=== PATIENT | female | born 1980 | race Two or more races ===

== ENCOUNTER 2018-01-27 18:22 | Inpatient (IN) | payer MEDICAID ==
[~2018-01-27] VITALS: Ht 162.6 cm; Wt 78.4 kg
[~2018-01-27 18:22] MED LIST: GLIP5TAB77; METF-370
[2018-01-27] MEDS ORDERED: SODIUM CHLORIDE 0.9% 1,000 ML IV ONE (19:52)
[2018-01-27] MEDS ORDERED: MORPHINE SULFATE 4 MG/ML SYR/VIAL IV ONE (20:00)
[2018-01-27] MEDS ORDERED: ONDANSETRON HCL 4 MG/2 ML VIAL IV ONE (20:00)
[2018-01-27 20:14] LABS: Basophils # (auto) 0 uL; Basophils % (auto) 0.2 % (0.0-2.0); Eosinophils # (auto) 0.2 uL; Hematocrit 41.4 % (36.0-46.0); Hemoglobin 14.4 g/dL (12.2-16.2); Lymphocytes # (auto) 3.5 uL; Lymphocytes % (auto) 38.2 % (10.0-50.0); Mean Corpuscular Hgb Conc. 34.7 g/dL (32.0-36.0); Mean Corpuscular Volume 86.4 fL (80.0-100.0); Monocytes # (auto) 0.5 uL; Monocytes % (auto) 5.7 % (0.0-12.0); Neutrophils # (auto) 4.9 uL; Neutrophils % (auto) 53.9 % (37.0-80.0); Nucleated Red Blood Cells % 0.1 %; Platelet Count (auto) 277 10^3/uL (140-450); Red Blood Cells 4.79 10^6/uL (4.0-5.20); Red Cell Distribution Width 14.1 % (11.8-14.3); White Blood Cell 9.1 10^3/uL (4.4-10.8)
[2018-01-27 20:32] LABS: Albumin 3.4 g/dL (3.4-5.0); BUN/Creatinine Ratio 21.3; Bilirubin, Total 0.2 mg/dL (0.2-1.0); Calcium 8.7 mg/dL (8.5-10.1); Potassium 3.4 mmol/L (3.5-5.1); Total Protein 7.7 g/dL (6.4-8.2)
[2018-01-27] MEDS ORDERED: CLINDAMYCIN 600MG IV 50 ML IV ONE (21:15)
[2018-01-28] MEDS ORDERED: SODIUM CHLORIDE 0.9% 1,000 ML IV ONE (00:15)
[2018-01-28] MEDS ORDERED: DEXTROSE (50%) 50ML SYRG IV PRN (00:15)
[2018-01-28] MEDS ORDERED: ACETAMINOPHEN 500 MG TAB PO PRN (00:15)
[2018-01-28] MEDS ORDERED: HYDROcodone-ACET 5/325MG TAB PO PRN (00:15)
[2018-01-28] MEDS: CLINDAMYCIN 600MG IV 50 ML IV SCH ×3 (06:22→22:14)
[2018-01-28] MEDS: ACCU-CHEK COMFORT CURVE STRIP VI SCH ×4 (06:28→22:14)
[2018-01-28] MEDS: InsuLIN REG 1unit/0.01ml Soln (100units/ml) SC SCH ×4 (06:28→22:14)
[2018-01-28] MEDS: MORPHINE SULF INJ 2 MG/ML SYRINGE 1ML IV PRN ×3 (07:42→20:00)
[2018-01-28] MEDS: ONDANSETRON HCL 4 MG/2 ML VIAL IV PRN ×3 (07:43→20:04)
[2018-01-28] MEDS: cefTRIAXone 1GM/10ml IVPUSH 10 ML IV SCH (09:35)
[2018-01-28] MEDS: LISINOPRIL 5 MG TAB PO SCH (10:20)
[2018-01-28 12:13] LABS: Urine Bacteria FEW /hpf (None Seen); Urine Blood 2+ /uL (Negative); Urine Mucus FEW (None Seen); Urine WBC 1 /hpf (0 - 5)
[2018-01-28 16:50] VITALS: BP 94/56
[2018-01-28 17:00] VITALS: BP_SYST 112; BP_SYST 94; BP_DIAS 56
[2018-01-28] MEDS: glipiZIDE 5 MG TAB PO SCH (17:30)
[2018-01-28] MEDS ORDERED: IBUP600T27 PO (18:41)
[2018-01-28] MEDS ORDERED: METF-370 PO (18:41)
[2018-01-28] MEDS ORDERED: GABA250S2 PO (18:41)
[2018-01-28] MEDS ORDERED: LISI30TA36 PO (18:41)
[2018-01-28] MEDS ORDERED: SIMV-8 PO (18:41)
[2018-01-28 22:00] VITALS: BP 115/68
[2018-01-28] MEDS: INSULIN LANTUS (GLARGINE) 1 /0.01ml (100units/ml) SC SCH (22:14)
[2018-01-29 05:30] VITALS: BP 117/65
[2018-01-29] MEDS: CLINDAMYCIN 600MG IV 50 ML IV SCH ×3 (06:19→21:56)
[2018-01-29] MEDS: MORPHINE SULF INJ 2 MG/ML SYRINGE 1ML IV PRN ×3 (06:20→20:19)
[2018-01-29] MEDS: ONDANSETRON HCL 4 MG/2 ML VIAL IV PRN ×3 (06:20→20:19)
[2018-01-29] MEDS: glipiZIDE 5 MG TAB PO SCH ×2 (06:21→17:47)
[2018-01-29] MEDS: ACCU-CHEK COMFORT CURVE STRIP VI SCH ×4 (06:23→21:56)
[2018-01-29] MEDS: InsuLIN REG 1unit/0.01ml Soln (100units/ml) SC SCH ×4 (07:02→22:03)
[2018-01-29] MEDS: cefTRIAXone 1GM/10ml IVPUSH 10 ML IV SCH (08:35)
[2018-01-29 08:51] VITALS: BP_SYST 104; BP_SYST 138; BP_DIAS 67; BP_DIAS 80
[2018-01-29] MEDS: LISINOPRIL 5 MG TAB PO SCH (09:24)
[2018-01-29 12:33] VITALS: BP 118/72
[2018-01-29] MEDS: IBUPROFEN 400 MG TAB PO PRN (15:22)
[2018-01-29 16:51] VITALS: BP 123/72
[2018-01-29 22:00] VITALS: BP 106/66
[2018-01-29] MEDS: INSULIN LANTUS (GLARGINE) 1 /0.01ml (100units/ml) SC SCH (22:03)
[2018-01-30 05:30] VITALS: BP 103/67
[2018-01-30] MEDS: CLINDAMYCIN 600MG IV 50 ML IV SCH ×3 (06:41→22:06)
[2018-01-30] MEDS: glipiZIDE 5 MG TAB PO SCH ×2 (06:41→17:56)
[2018-01-30] MEDS: ACCU-CHEK COMFORT CURVE STRIP VI SCH ×4 (06:42→22:27)
[2018-01-30] MEDS: InsuLIN REG 1unit/0.01ml Soln (100units/ml) SC SCH ×4 (06:42→22:26)
[2018-01-30 09:00] VITALS: BP 120/78
[2018-01-30] MEDS ORDERED: INSULIN LANTUS (GLARGINE) 1 /0.01ml (100units/ml) SC ONE (09:00)
[2018-01-30] MEDS: MORPHINE SULF INJ 2 MG/ML SYRINGE 1ML IV PRN ×3 (09:14→20:19)
[2018-01-30] MEDS: cefTRIAXone 1GM/10ml IVPUSH 10 ML IV SCH (09:14)
[2018-01-30] MEDS: ONDANSETRON HCL 4 MG/2 ML VIAL IV PRN ×2 (09:15→20:25)
[2018-01-30] MEDS: LISINOPRIL 5 MG TAB PO SCH (09:45)
[2018-01-30] MEDS: DAKINS QUARTER STR 0.125% (NaHypochlorite) 473 ML TOPICAL SOL TOP SCH ×2 (09:45→22:00)
[2018-01-30] MEDS: SILVER SULFADIAZINE 1 % TOPICAL CREAM 50GM TOP SCH ×2 (09:46→22:00)
[2018-01-30] MEDS ORDERED: PANTOPRAZOLE 40 MG TAB PO SCH (10:00)
[2018-01-30 13:00] VITALS: BP_SYST 108; BP_SYST 114; BP_DIAS 66; BP_DIAS 74
[2018-01-30] MEDS ORDERED: CLIN1CAP4 PO (15:18)
[2018-01-30] MEDS ORDERED: LIDOCAINE 1% HCL (LOCAL ANESTH.) INJ 20ML MDV ID ONE (16:15)
[2018-01-30] MEDS ORDERED: LIDOCAINE 1% (LOCAL ANESTH.) PF 5ml SDV ONE (16:47)
[2018-01-30 17:00] VITALS: BP 102/63
[2018-01-30] MEDS ORDERED: DAKINS HALF STR 0.25% (NaHypochlorite) 473 ML TOPICAL SOL TOP ONE (17:00)
[2018-01-30 22:00] VITALS: BP 109/77
[2018-01-30] MEDS: IBUPROFEN 400 MG TAB PO PRN (22:24)
[2018-01-30] MEDS: INSULIN LANTUS (GLARGINE) 1 /0.01ml (100units/ml) SC SCH (22:27)
[2018-01-31] MEDS: MORPHINE SULF INJ 2 MG/ML SYRINGE 1ML IV PRN ×2 (00:48→05:58)
[2018-01-31] MEDS: ONDANSETRON HCL 4 MG/2 ML VIAL IV PRN ×2 (00:48→05:58)
[2018-01-31 05:14] VITALS: BP 106/67
[2018-01-31] MEDS: CLINDAMYCIN 600MG IV 50 ML IV SCH (05:58)
[2018-01-31] MEDS: glipiZIDE 5 MG TAB PO SCH (06:49)
[2018-01-31] MEDS: ACCU-CHEK COMFORT CURVE STRIP VI SCH (06:51)
[2018-01-31] MEDS: InsuLIN REG 1unit/0.01ml Soln (100units/ml) SC SCH (06:51)
[2018-01-31] MEDS ORDERED: INSULIN LANTUS (GLARGINE) 1 /0.01ml (100units/ml) SC SCH (07:00)
[2018-01-31 07:26] VITALS: BP 120/78
[2018-01-31 09:00] VITALS: BP 98/66
== END 2018-01-31 09:00 | disposition home or self-care (01) | DRG 383 ==
LOC: ER 18:22 → OVERFLOW 18:23 → WEST WING 01-28 17:06
PROVIDERS: ADMIT Nurse Practitioner Family; ATTEND Internal Medicine
PROC: 0H9MXZZ Drainage of Right Foot Skin, External Approach (ICD-10-PCS; principal; 2018-01-30)
DX: L03.115 Cellulitis of right lower limb (principal); E11.42 Type 2 diabetes mellitus with diabetic polyneuropathy; E11.65 Type 2 diabetes mellitus with hyperglycemia; I10 Essential (primary) hypertension; L02.611 Cutaneous abscess of right foot; E78.5 Hyperlipidemia, unspecified; F17.210 Nicotine dependence, cigarettes, uncomplicated; Z79.4 Long term (current) use of insulin; Z83.3 Family history of diabetes mellitus; Z79.899 Other long term (current) drug therapy
CPT/HCPCS: 36415; 73700; 80053; 81001; 82962; 83036; 84550; 84702; 85025; 85652; 87077; 87186; 87205; 93971; 94761; 96361; 96374; 96375; J0696; J1815; J2405; J3490

== ENCOUNTER 2020-07-01 12:45 | Emergency (ER) | payer MEDICAID ==
[~2020-07-01] VITALS: Ht 162.6 cm; Wt 74.8 kg
[~2020-07-01 12:45] MED LIST changes: +CLIN300C8 PO; +GABA250S2 PO; -GLIP5TAB77; +IBUP600T27 PO; +LISI30TA4 PO; -METF-370; +METF-370 PO; +SIMV-8 PO
[2020-07-01] MEDS ORDERED: IOHEXOL 300 MG/ML 100ML BOTTLE IJ ONE (13:14)
[2020-07-01] MEDS ORDERED: MORPHINE SULFATE 4 MG/ML SYR/VIAL IV ONE ×2 (13:15→17:30)
[2020-07-01] MEDS ORDERED: SODIUM CHLORIDE 0.9% 1,000 ML IVB ONE (13:15)
[2020-07-01] MEDS ORDERED: ONDANSETRON HCL 4 MG/2 ML VIAL IV ONE ×2 (13:15→17:30)
[2020-07-01 14:33] LABS: Basophils # (auto) 0 10 ^3/uL (0-0.2); Basophils % (auto) 0.5 % (0.0-2.0); Eosinophils # (auto) 0.1 10 ^3/uL (0-0.8); Eosinophils % (auto) 1.5 % (0.0-7.0); Hematocrit 40.7 % (36.0-46.0); Hemoglobin 14.1 g/dL (12.2-16.2); Lymphocytes # (auto) 2.4 10 ^3/uL (0.4-5.4); Lymphocytes % (auto) 33.1 % (10.0-50.0); Mean Corpuscular Hemoglobin 29.8 pg (28.0-32.0); Mean Corpuscular Hgb Conc. 34.7 g/dL (32.0-36.0); Monocytes # (auto) 0.4 10 ^3/uL (0-1.3); Neutrophils # (auto) 4.3 10 ^3/uL (1.6-8.6); Neutrophils % (auto) 58.9 % (37.0-80.0); Nucleated Red Blood Cells % 0.1 %; Platelet Count (auto) 262 10^3/uL (140-450); Red Blood Cells 4.73 10^6/uL (4.0-5.20); Red Cell Distribution Width 14.1 % (11.8-14.3); White Blood Cell 7.3 10^3/uL (4.4-10.8)
[2020-07-01 16:22] LABS: Albumin 2.6 g/dL (3.4-5.0); Calcium 7.8 mg/dL (8.5-10.1); Potassium 3.7 mmol/L (3.5-5.1)
[2020-07-01 16:29] LABS: BUN/Creatinine Ratio 14.3; Bilirubin, Total 0.3 mg/dL (0.2-1.0); Total Protein 6.3 g/dL (6.4-8.2)
[2020-07-01] MEDS ORDERED: InsuLIN REG 1unit/0.01ml Soln (100units/ml) IV ONE (16:45)
[2020-07-01] MEDS ORDERED: ONDANSETRON HCL 4 MG/2 ML VIAL ONE (17:30)
[2020-07-01 17:59] VITALS: BP 114/79
== END 2020-07-01 18:23 | disposition home or self-care (01) ==
LOC: ER 12:45
DX: R10.84 Generalized abdominal pain (principal); R11.2 Nausea with vomiting, unspecified; E11.9 Type 2 diabetes mellitus without complications; E78.5 Hyperlipidemia, unspecified; F17.210 Nicotine dependence, cigarettes, uncomplicated
CPT/HCPCS: 36415; 74177; 80053; 83605; 83690; 85007; 85025; 85027; 87040; 96361; 96374; 96375; 96376; 99285; J2270; J2405; J7030; Q9967

== ENCOUNTER 2020-11-10 19:11 | Inpatient (IN) | payer MEDICAID ==
[~2020-11-10] VITALS: Ht 162.6 cm; Wt 77.5 kg
[2020-11-10] MEDS ORDERED: PANTOPRAZOLE 40 MG/10 ML VIAL INJ IV STA (19:34)
[2020-11-10] MEDS ORDERED: SODIUM CHLORIDE 0.9% 1,000 ML IVB ONE (19:45)
[2020-11-10] MEDS ORDERED: MORPHINE SULFATE 4 MG/ML SYR/VIAL IV ONE (19:45)
[2020-11-10] MEDS ORDERED: ONDANSETRON HCL 4 MG/2 ML VIAL IV ONE (19:45)
[2020-11-10 20:39] LABS: Basophils # (auto) 0.1 10 ^3/uL (0-0.2); Basophils % (auto) 0.7 % (0.0-2.0); Eosinophils # (auto) 0.2 10 ^3/uL (0-0.8); Hematocrit 39.7 % (36.0-46.0); Hemoglobin 13.7 g/dL (12.2-16.2); Lymphocytes # (auto) 2.4 10 ^3/uL (0.4-5.4); Mean Corpuscular Hgb Conc. 34.6 g/dL (32.0-36.0); Mean Corpuscular Volume 86.6 fL (80.0-100.0); Monocytes # (auto) 0.4 10 ^3/uL (0-1.3); Monocytes % (auto) 6.2 % (0.0-12.0); Neutrophils % (auto) 56.1 % (37.0-80.0); Nucleated Red Blood Cells % 0.2 %; Platelet Count (auto) 285 10^3/uL (140-450); Red Blood Cells 4.58 10^6/uL (4.0-5.20); Red Cell Distribution Width 14.8 % (11.8-14.3); White Blood Cell 7.2 10^3/uL (4.4-10.8)
[2020-11-10 20:51] LABS: Albumin 3.3 g/dL (3.4-5.0); Calcium 8.9 mg/dL (8.5-10.1)
[2020-11-10 20:55] LABS: BUN/Creatinine Ratio 15.3; Bilirubin, Total 0.2 mg/dL (0.2-1.0); Total Protein 7.2 g/dL (6.4-8.2)
[2020-11-10] MEDS ORDERED: InsuLIN REG 1unit/0.01ml Soln (100units/ml) IV ONE (21:15)
[2020-11-11] MEDS ORDERED: NITROGLYCERIN 0.4 MG SL TAB SL PRN (00:45)
[2020-11-11] MEDS ORDERED: ACETAMINOPHEN 325 MG TAB PO PRN (00:45)
[2020-11-11] MEDS ORDERED: TEMAZEPAM 15 MG CAP PO PRN (00:45)
[2020-11-11] MEDS ORDERED: DEXTROSE (50%) 50ML SYRG IV PRN (00:45)
[2020-11-11] MEDS ORDERED: MORPHINE SULF INJ 2 MG/ML SYRINGE 1ML IV PRN (00:45)
[2020-11-11] MEDS ORDERED: HYDROcodone-ACET 5/325MG TAB PO PRN (00:45)
[2020-11-11] MEDS ORDERED: DOCUSATE SOD 100 MG CAP PO PRN (00:45)
[2020-11-11] MEDS: InsuLIN REG 1unit/0.01ml Soln (100units/ml) SC SCH ×3 (05:43→17:21)
[2020-11-11] MEDS: ACCU-CHEK COMFORT CURVE STRIP VI SCH ×4 (05:44→23:58)
[2020-11-11] MEDS: SODIUM CHLOR 0.9% PF (SALINE LOCK) 10ML VIAL/SYR IV SCH ×3 (05:44→21:47)
[2020-11-11] MEDS: SODIUM CHLORIDE 0.9% 1,000 ML IV SCH ×2 (06:18→17:29)
[2020-11-11 09:05] VITALS: BP 108/72
[2020-11-11] MEDS ORDERED: ENOXAPARIN SOD 40 MG/0.4 ML SYRINGE SC SCH (10:00)
[2020-11-11] MEDS: MULTIPLE VITAMIN TAB PO SCH (10:22)
[2020-11-11] MEDS: FAMOTIDINE 20 MG TAB PO SCH ×2 (10:22→21:44)
[2020-11-11] MEDS: ASCORBIC ACID 500 MG TAB PO SCH ×2 (10:22→21:44)
[2020-11-11] MEDS: ZINC SULFATE 220mg CAP or TAB PO SCH (10:22)
[2020-11-11] MEDS: ONDANSETRON HCL 4 MG/2 ML VIAL IV PRN ×3 (10:29→22:26)
[2020-11-11] MEDS: MORPHINE SULFATE 4 MG/ML SYR/VIAL IV PRN ×3 (10:30→21:43)
[2020-11-11 11:06] LABS: Urine Bacteria NONE SEEN /hpf (None Seen); Urine Blood 1+ /uL (Negative); Urine Mucus FEW (None Seen); Urine Specific Gravity 1.018 (1.001-1.035); Urine WBC 1 /hpf (0 - 5)
[2020-11-11 11:23] LABS: Basophils # (auto) 0 10 ^3/uL (0-0.2); Basophils % (auto) 0.3 % (0.0-2.0); Eosinophils # (auto) 0.2 10 ^3/uL (0-0.8); Eosinophils % (auto) 2.5 % (0.0-7.0); Hematocrit 38.8 % (36.0-46.0); Hemoglobin 13.3 g/dL (12.2-16.2); Lymphocytes % (auto) 37.3 % (10.0-50.0); Mean Corpuscular Hemoglobin 29.4 pg (28.0-32.0); Mean Corpuscular Hgb Conc. 34.2 g/dL (32.0-36.0); Mean Corpuscular Volume 85.9 fL (80.0-100.0); Monocytes # (auto) 0.6 10 ^3/uL (0-1.3); Monocytes % (auto) 6.8 % (0.0-12.0); Neutrophils # (auto) 4.3 10 ^3/uL (1.6-8.6); Neutrophils % (auto) 53.1 % (37.0-80.0); Nucleated Red Blood Cells % 0.1 %; Platelet Count (auto) 248 10^3/uL (140-450); Red Blood Cells 4.52 10^6/uL (4.0-5.20); Red Cell Distribution Width 14.5 % (11.8-14.3); White Blood Cell 8.1 10^3/uL (4.4-10.8)
[2020-11-11 12:51] VITALS: BP 120/69
[2020-11-11 13:11] VITALS: BP 108/72
[2020-11-11 13:26] LABS: Calcium 8.5 mg/dL (8.5-10.1); Potassium 3.8 mmol/L (3.5-5.1)
[2020-11-11 13:27] LABS: BUN/Creatinine Ratio 15.7
[2020-11-11 13:30] LABS: Bilirubin, Total 0.3 mg/dL (0.2-1.0); Total Protein 6.7 g/dL (6.4-8.2)
[2020-11-11] MEDS ORDERED: INSU1INJ19 SC (14:14)
[2020-11-11] MEDS ORDERED: METF-370 PO (14:14)
[2020-11-11] MEDS ORDERED: ASPI-543 PO (14:14)
[2020-11-11] MEDS ORDERED: ESCI-28 PO (14:14)
[2020-11-11] MEDS ORDERED: GABA-339 PO (14:14)
[2020-11-11] MEDS ORDERED: ATOR20TA50 PO (14:14)
[2020-11-11] MEDS ORDERED: GLIP5TAB12 PO (14:14)
[2020-11-11 16:32] VITALS: BP 112/63
[2020-11-11 22:00] VITALS: BP 136/85
[2020-11-12 05:00] VITALS: BP 140/67
[2020-11-12] MEDS: ACCU-CHEK COMFORT CURVE STRIP VI SCH ×2 (06:11→11:28)
[2020-11-12] MEDS: SODIUM CHLOR 0.9% PF (SALINE LOCK) 10ML VIAL/SYR IV SCH (06:11)
[2020-11-12] MEDS: InsuLIN REG 1unit/0.01ml Soln (100units/ml) SC SCH ×3 (06:16→11:28)
[2020-11-12] MEDS: MORPHINE SULFATE 4 MG/ML SYR/VIAL IV PRN (06:19)
[2020-11-12 07:53] LABS: Basophils # (auto) 0 10 ^3/uL (0-0.2); Basophils % (auto) 0.6 % (0.0-2.0); Eosinophils # (auto) 0.1 10 ^3/uL (0-0.8); Eosinophils % (auto) 1.9 % (0.0-7.0); Hematocrit 38.3 % (36.0-46.0); Hemoglobin 13.4 g/dL (12.2-16.2); Lymphocytes # (auto) 2.2 10 ^3/uL (0.4-5.4); Lymphocytes % (auto) 32.8 % (10.0-50.0); Mean Corpuscular Hemoglobin 30.1 pg (28.0-32.0); Mean Corpuscular Hgb Conc. 35.1 g/dL (32.0-36.0); Mean Corpuscular Volume 85.7 fL (80.0-100.0); Monocytes # (auto) 0.5 10 ^3/uL (0-1.3); Monocytes % (auto) 6.8 % (0.0-12.0); Neutrophils # (auto) 3.9 10 ^3/uL (1.6-8.6); Neutrophils % (auto) 57.9 % (37.0-80.0); Platelet Count (auto) 259 10^3/uL (140-450); Red Blood Cells 4.46 10^6/uL (4.0-5.20); Red Cell Distribution Width 14.6 % (11.8-14.3); White Blood Cell 6.8 10^3/uL (4.4-10.8)
[2020-11-12 08:02] LABS: Calcium 8.7 mg/dL (8.5-10.1); Potassium 3.8 mmol/L (3.5-5.1)
[2020-11-12 08:06] LABS: Bilirubin, Total 0.3 mg/dL (0.2-1.0); Total Protein 6.6 g/dL (6.4-8.2)
[2020-11-12 08:15] VITALS: BP 115/73
[2020-11-12] MEDS: SODIUM CHLORIDE 0.9% 1,000 ML IV SCH (08:55)
[2020-11-12 09:00] VITALS: BP 115/73
[2020-11-12] MEDS: MULTIPLE VITAMIN TAB PO SCH (10:00)
[2020-11-12] MEDS: ZINC SULFATE 220mg CAP or TAB PO SCH (10:00)
[2020-11-12] MEDS: ASCORBIC ACID 500 MG TAB PO SCH (10:00)
[2020-11-12] MEDS: FAMOTIDINE 20 MG TAB PO SCH (10:00)
[2020-11-12 10:26] VITALS: BP 115/73
== END 2020-11-12 11:33 | disposition home or self-care (01) | DRG 253 ==
LOC: ER 19:11 → TELE 11-11 00:33 → TELE-WESTW 11-11 07:40 → WEST WING 11-11 07:48
PROVIDERS: ADMIT Nurse Practitioner Family; ATTEND Family Medicine
DX: K92.2 Gastrointestinal hemorrhage, unspecified (principal); E11.43 Type 2 diabetes mellitus with diabetic autonomic (poly)neuropathy; K76.0 Fatty (change of) liver, not elsewhere classified; E11.65 Type 2 diabetes mellitus with hyperglycemia; I10 Essential (primary) hypertension; F17.210 Nicotine dependence, cigarettes, uncomplicated; K31.9 Disease of stomach and duodenum, unspecified; Z79.4 Long term (current) use of insulin; Z83.3 Family history of diabetes mellitus; Z98.51 Tubal ligation status
CPT/HCPCS: 36415; 74176; 80053; 81001; 82150; 82962; 83036; 83690; 85025; 87426; 96361; 96374; 96375; C9113; G0378; J1815; J2405

== ENCOUNTER 2022-11-12 18:44 | Emergency (ER) | payer MEDICAID ==
[~2022-11-12] VITALS: Ht 162.6 cm; Wt 68.1 kg
[~2022-11-12 18:44] MED LIST changes: +ASPI-543 PO; +ATOR20TA50 PO; +CLIN300C70 PO; -CLIN300C8 PO; +ESCI1TAB36 PO; +GABA-339 PO; -GABA250S2 PO; +GABA250S7 PO; +GLIP5TAB12 PO; +IBUP-1454 PO; -IBUP600T27 PO; +INSU1INJ19 SC; -LISI30TA4 PO; +LISI30TA8 PO; -SIMV-8 PO; +SIMV20TA20 PO
[2022-11-12 19:18] LABS: Basophils # (auto) 0 10 ^3/uL (0-0.2); Basophils % (auto) 0.4 % (0.0-2.0); Eosinophils # (auto) 0.2 10 ^3/uL (0-0.8); Eosinophils % (auto) 2.5 % (0.0-7.0); Hematocrit 40.4 % (36.0-46.0); Hemoglobin 13.8 g/dL (12.2-16.2); Lymphocytes % (auto) 31.4 % (10.0-50.0); Mean Corpuscular Hemoglobin 29.5 pg (28.0-32.0); Mean Corpuscular Hgb Conc. 34.1 g/dL (32.0-36.0); Mean Corpuscular Volume 86.7 fL (80.0-100.0); Monocytes # (auto) 0.6 10 ^3/uL (0-1.3); Monocytes % (auto) 8.9 % (0.0-12.0); Neutrophils # (auto) 3.6 10 ^3/uL (1.6-8.6); Neutrophils % (auto) 56.8 % (37.0-80.0); Nucleated Red Blood Cells % 0.2 %; Red Blood Cells 4.66 10^6/uL (4.0-5.20); Red Cell Distribution Width 14.9 % (11.8-14.3); White Blood Cell 6.3 10^3/uL (4.4-10.8)
[2022-11-12] MEDS ORDERED: ASPirin 81 mg TAB PO ONE (19:45)
[2022-11-12 19:47] LABS: Albumin 3.4 g/dL (3.4-5.0); Calcium 8.9 mg/dL (8.5-10.1)
[2022-11-12 19:52] LABS: BUN/Creatinine Ratio 14.9 (10.0-20.0); Bilirubin, Total 0.2 mg/dL (0.2-1.0)
[2022-11-12 22:00] VITALS: BP 120/79
== END 2022-11-12 22:03 | disposition home or self-care (01) ==
LOC: ER 18:44
DX: R07.2 Precordial pain (principal); R19.7 Diarrhea, unspecified; R11.0 Nausea; F17.210 Nicotine dependence, cigarettes, uncomplicated; E11.9 Type 2 diabetes mellitus without complications; Z98.890 Other specified postprocedural states
CPT/HCPCS: 36415; 71046; 80053; 84484; 85025; 93005

== ENCOUNTER 2024-05-09 11:30 | Inpatient (IN) | payer MEDICAID ==
[~2024-05-09] VITALS: Ht 162.6 cm; Wt 59.6 kg
[~2024-05-09 11:30] MED LIST changes: +CLIN1CAP70 PO; -CLIN300C70 PO; -GLIP5TAB12 PO; +GLIP5TAB21 PO
[2024-05-09] MEDS ORDERED: SODIUM CHLORIDE 0.9% 1,000 ML IV ONE (13:00)
[2024-05-09] MEDS: HYDROcodone-ACET 5/325MG TAB PO ONE (13:11)
[2024-05-09 13:13] VITALS: PULSE 89; RESP 19; O2SAT 96
--- NOTE | 2024-05-09 13:15 | ED.PDOC ---
History of Present Illness HPI Comments 44F with a history of diabetes and pancreatitis brought in by private car complaining of blurred vision. Pt reports on having blurry vision and pain on the left eye which started last night, as well as a generalized BOYD. Pt reports that her left eye is also very sensitive to light, and notes left upper and l ower extremity and left facial weakness. PMHx of DM, Pancreatitis. SHx of C- Section. Denies chills, fever, N/V/D, SOB, CP or other associated symptoms, modifiers, or recent injuries at this time. Chief Complaint: Eye Problem Time Seen by MD: 12:40 Primary Care Provider: BLANQUITA Reviewed Notes: Nurses Notes, Medications, Allergies Allergies: Coded Allergies: NO KNOWN ALLERGIES (Unverified , 12/02/11) Home Meds Active Scripts Clindamycin Hcl (Clindamycin Hcl) 300 Mg Cap, 1 CAP PO TID, #21 CAP Prov:CLAUDY SIMON MD 01/30/18 Reported Medications Aspirin (Aspir-Low) 81 Mg Tab, 81 MG PO DAILY for 30 Days, MG 11/11/20 Metformin Hydrochloride (Metformin Hcl) 500 Mg Tab, 1000 MG PO IBID for 30 Days, MG 11/11/20 Escitalopram Oxalate (ESCITALOPRAM OXALATE) 10 Mg Tab, 1 TAB PO DAILY, #30 TAB 3 Refills 11/11/20 Glipizide (Glipizide) 5 Mg Tab, 5 MG PO BID for 30 Days, MG 11/11/20 Atorvastatin Calcium (ATORVASTATIN CALCIUM) 20 Mg Tab, 1 TAB PO DAILY, #30 TAB 5 Refills 11/11/20 Gabapentin (Gabapentin) 600 Mg Tab, 600 MG PO DAILY for 30 Days, MG 11/11/20 Insulin Glargine (Basaglar Kwikpen) 100 Unit/Ml Inj, 25 UNIT SC BID, INJ 11/11/20 Gabapentin (GABAPENTIN) 250 Mg/5 Ml Linnea, 300 MG PO BID 01/28/18 Simvastatin (Simvastatin) 20 Mg Tab, 20 MG PO DAILY for 30 Days 01/28/18 Metformin Hydrochloride (Metformin Hcl) 500 Mg Tab, 1000 MG PO BID for 30 Days, MG 01/28/18 Lisinopril (Lisinopril) 30 Mg Tab, 25 MG PO DAILY for 30 Days, MG 01/28/18 Ibuprofen (Ibuprofen) 600 Mg Tab, 600 MG PO Q8HPRN PRN for PAIN SCALE 1 THRU 6, MG 0 Refills 01/28/18 Information Source: Patient Mode of Arrival: Ambulatory Severity: Moderate Timing: Hours Duration: Since onset, Hours Prehospital treatment: None Past Medical History PAST MEDICAL HISTORY: DM Past Medical History (Other): Pancreatitis Surgical History: H[employer] SPINNER History: No Pertinent H[employer] CANDY SPINNER History Family History Family History: Reviewed,noncontributory to illness, Unknown Social History Smoker: Unknown Alcohol: Unknown Drugs: Unknown Lives In: Home Constitutional: denies: chills, diaphoresis, fatigue, fever, malaise, sweats, weakness, others EENTM: reports: blurred vision, eye pain, eye redness; denies: double vision, ear bleeding, ear discharge, ear drainage, ear pain, ear ringing, hearing loss, mouth pain, mouth swelling, nasal discharge, nose bleeding, nose congestion, nose pain, photophobia, tearing, throat pain, throat swelling, voice changes, others Respiratory: denies: cough, hemoptysis, orthopnea, SOB at rest, shortness of breath, SOB with excertion, stridor, wheezing, others Cardiovascular: denies: chest pain, dizzy spells, diaphoresis, Dyspnea on exertion, edema, irregular heart beat, left arm pain, lightheadedness, palpitations, PND, syncope, others Gastrointestinal: denies: abdomen distended, abdominal pain, blood streaked bowels, constipated, diarrhea, dysphagia, difficulty swallowing, hematemesis, melena, nausea, poor appetite, poor fluid intake, rectal bleeding, rectal pain, vomiting, others Genitourinary: denies: abnormal vagina bleeding, burning, dyspareunia, dysuria, flank pain, frequency, hematuria, incontinence, pain, , vagina discharge, urgency, others Neurological: reports: headache, left sided weakness, weakness; denies: dizziness, fainting, left sided numbness, numbness, paresthesia, pre-existing deficit, right sided numbness, right sided weakness, seizure, speech problems, tingling, tremors, others Musculoskeletal: denies: back pain, gout, joint pain, joint swelling, muscle pain, muscle stiffness, neck pain, others Integumetry: denies: bruises, change in color, change in hair/nails, dryness, laceration, lesions, lumps, rash, wounds, others Allergic/Immunocompromised: denies: Difficulty Healing, Frequent Infections, Hives, Itching, others Hematologic/Lymphatic: denies: anemia, blood clots, easy bleeding, easy bruising, swollen glands, others Endocrine: denies: excessive hunger, excessive sweating, excessive thirst, excessive urination, flushing, intolerance to cold, intolerance to heat, unexplained weight gain, unexplained weight loss, others Psychiatric: denies: anxiety, bipolar disorder, depression, hopeless, panic disorder, schizophrenia, sleepless, suicidal, others All Other Systems: Reviewed and Negative Physical Exam General Appearance: Mild Distress HEENT: Other (Pupils symmetric, extraocular movements intact, subtle left facial droop) Neck: Full Range of Motion, Normal Inspection Respiratory: Lungs Clear, No Accessory Muscle Use, No Respiratory Distress, Normal Breath Sounds Cardiovascular: No Edema, No JVD, Regular Rate/Rhythm Breast Exam: Deferred Gastrointestinal: Non Tender, Soft Genitalia: Deferred Pelvic: Deferred Rectal: Deferred Extremities: Normal inspection, Normal range of motion, Non-tender, No pedal edema Musculoskeletal : Apperance: Normal Neurologic: Alert, Normal Affect, Other (Pupils symmetric, mild left facial weakness, diminished light touch sensation lower left face, motor strength 5/5 right upper and bilateral lower extremities, 4/5 left upper extremity) Cerebellar Function: NOT DONE Reflexes: NOT DONE Skin: Dry, Normal Color, Warm Lymphatic: NOT DONE Was a procedure done? Was a procedure done?: No EKG EKG : Comments Sinus tach, rate 103, normal AL and QRS intervals, QTC 485, right axis deviation, nonspecific T changes. Differential Dx Considerations may include: CVA, TIA, intracranial mass/hemorrhage, electrolyte imbalance, complicated migraine, Vazquez's palsy, among others X-Ray, Labs, Meds, VS Vital Signs Date Time Temp Pulse Resp B/P (MAP) Pulse Ox O2 Delivery O2 Flow Rate FiO2 05/09/24 13:33 98.1 100 17 107/66 (80) 99 98.1 05/09/24 13:33 100 17 99 Room Air 05/09/24 13:13 89 19 96 Room Air* 0 21 05/09/24 12:27 98.4 106 12 122/77 (92) 100 05/09/24 12:23 103 Lab Test 05/09/24 14:30 05/09/24 13:21 05/09/24 13:20 05/09/24 12:21 Range/Units Troponin I High Sensitivity < 3 L < 3 L </=34 ng/L Blood Gas Specimen Type Arterial Blood Gas Sample Site Left brachial Blood Gas Patient Temperature 37.0 Arterial Blood Date Drawn [id number] Arterial Blood pH 7.408 7.350-7.450 Arterial Blood Partial Pressure CO2 34.5 32.0-45.0 mmHg Arterial Blood Partial Pressure O2 76.8 L 83.0-108.0 mmHg Arterial Blood HCO3 21.3 21.0-28.0 mmol/L Arterial Blood Oxygen Saturation 95.3 94.0-98.0 % Arterial Blood Base Excess -2.6 L -2.0-3.0 mmol/L Arterial Blood Oxyhemoglobin 88.8 L 94.0-98.0 % Arterial Blood Carboxyhemoglobin 6.5 H 0.5-1.5 % Arterial Blood Methemoglobin 0.3 0.0-1.5 % Rory Test Yes Blood Gas Total Hemoglobin 15.00 12.0-16.0 g/dL Blood Gas Modality Room air FiO2 % 21.0 White Blood Count 8.9 4.4-10.8 10^3/uL Red Blood Count 4.97 4.0-5.20 10^6/uL Hemoglobin 15.2 12.2-16.2 g/dL Hematocrit 44.2 36.0-46.0 % Mean Corpuscular Volume 89.0 80.0-100.0 fL Mean Corpuscular Hemoglobin 30.6 28.0-32.0 pg Mean Corpuscular Hemoglobin Concent 34.4 32.0-36.0 g/dL Red Cell Distribution Width 13.9 11.8-14.3 % Platelet Count 296 140-450 10^3/uL Mean Platelet Volume 7.9 6.9-10.8 fL Neutrophils (%) (Auto) 63.6 37.0-80.0 % Lymphocytes (%) (Auto) 29.3 10.0-50.0 % Monocytes (%) (Auto) 5.9 0.0-12.0 % Eosinophils (%) (Auto) 0.9 0.0-7.0 % Basophils (%) (Auto) 0.3 0.0-2.0 % Neutrophils # (Auto) 5.7 1.6-8.6 10 ^3/uL Lymphocytes # (Auto) 2.6 0.4-5.4 10 ^3/uL Monocytes # (Auto) 0.5 0-1.3 10 ^3/uL Eosinophils # (Auto) 0.1 0-0.8 10 ^3/uL Basophils # (Auto) 0 0-0.2 10 ^3/uL Nucleated Red Blood Cells 0.2 % Prothrombin Time 10.0 9.3-11.8 sec Prothrombin Time INR 0.94 0.9-1.15 Activated Partial Thromboplast Time 25.1 24.5-34.5 SEC Sodium Level 134 L 136-145 mmol/L Potassium Level 4.3 3.5-5.1 mmol/L Chloride Level 97 L 98-107 mmol/L Carbon Dioxide Level 26 20-31 mmol/L Anion Gap 11 5-15 Blood Urea Nitrogen 17 9-23 mg/dL Creatinine 0.97 0.550-1.02 mg/dL Glomerular Filtration Rate Calc 74 >90 mL/min BUN/Creatinine Ratio 17.5 10.0-20.0 Serum Glucose 495 *H 74-106 mg/dL Calcium Level 10.3 8.7-10.4 mg/dL B-Type Natriuretic Peptide 3.20 0-100 pg/mL Beta-Hydroxybutyric Acid 1.104 H < 0.4 mmol/L Beta HCG, Quantitative 1.6 1.5-4.2 mIU/mL POC Glucose 502 *H 70-106 mg/dl Test 05/09/24 12:20 Range/Units POC Glucose 523 *H 70-106 mg/dl Current Medications Medications (Trade) Dose Ordered Sig/Lisa Route Start Time Stop Time Status Last Admin Acetaminophen/ Hydrocodone Bitart ([place] 5/325MG Tab) 2 tab ONCE ONCE PO 05/09/24 13:00 05/09/24 13:01 DC 05/09/24 13:11 Sodium Chloride 1,000 ml @ 1,000 mls/hr Q1H ONCE IV 05/09/24 13:30 05/09/24 14:29 DC 05/09/24 13:21 PROCEDURE(s): HWOCT - HEAD WITHOUT CONTRAST REASON: blurred vision, facial weakness ORDER NUMBER(s): [id number], ACCESSION NUMBER(s): [id number] CLINICAL INFORMATION: 44 years old, Female; blurred vision, facial weakness. TECHNIQUE: Axial imaging was obtained through the brain without contrast. Coronal and sagittal reformatted images were obtained, reviewed, and stored. Images were reviewed in brain and bone windows. All CT scans at this medical facility are performed using dose modulation techniques as appropriate to a performed exam including the following: Automated exposure control was utilized; adjustment of the MA and/or KV according to patient size; and use of iterative reconstruction technique. CTDIvol = 53.46 mGy DLP = 855.88 mGy-cm COMPARISON: None. FINDINGS: There is no acute intracranial hemorrhage or extraaxial fluid collection. No mass effect or midline shift. The ventricles and sulci are within normal limits in size for age. Basal cisterns are patent. The calvarium is unremarkable. Paranasal sinuses and mastoid air cells are clear. IMPRESSION: No CT evidence of acute intracranial abnormality. EDURE(s): CXRP - CHEST PORTABLE REASON: weakness ORDER NUMBER(s): [id number], ACCESSION NUMBER(s): [id number] EXAM: XR Chest, 1 View CLINICAL INDICATION: weakness TECHNIQUE: Frontal view of the chest. COMPARISON: None FINDINGS: LUNGS AND PLEURAL SPACES: Unremarkable. No consolidation. No pneumothorax. HEART: Unremarkable. No cardiomegaly. MEDIASTINUM: Unremarkable. Normal mediastinal contour. BONES/JOINTS: Unremarkable. No acute fracture. OTHER FINDINGS: . . . IMPRESSION: No acute cardiopulmonary process. X-Ray, Labs, Meds, VS Comment 44-year-old female with a history of diabetes and pancreatitis complaining of left eye blurred vision, left facial and left upper extremity weakness, and left facial numbness Vitals remarkable for heart rate 103 Exam remarkable for left facial weakness, diminished light touch sensation left lower face, left upper extremity weakness Rhythm strip independently interpreted by me: Sinus tach, rate 103, no ectopy. Head CT unremarkable Chest x-ray unremarkable CBC unremarkable, basic metabolic panel remarkable for sodium 134, chloride 97, glucose 495 HCG negative, 2 serial troponins negative, beta hydroxybutyrate 1.104 ABG: PH 7.4, pCO2 34.5, PO2 76.8, base excess-2.6, oxyhemoglobin 88.8%, carboxyhemoglobin 6.5% Patient treated with the following in the ED: [place] 5/325 mg 2 tabs p.o., 1 L 0.9 normal saline IV bolus, regular insulin 6 units IV, aspirin 325 mg p.o. On re-evaluation, patient states pain has improved. Vitals are stable. No new neurologic changes. Plan is to admit the patient for blood glucose control, brain MRI and Neurology evaluation. Time of 1ST Reevaluation: 13:10 Reevaluation 1ST: Unchanged Patient Education/Counseling: Diagnosis, Treatment, Prognosis Family Education/Counseling: No Family Present Additional Information I reviewed the following notes from the pt's past medical encounters: 11/12/22 The following tests were ordered, and results were reviewed by me: labs, EKGS, xrays, CT, PHA I reviewed and agreed with the following test results read by other providers: xray, CT I discussed treatments and results with medical personnel and: (consultants, fam, etc) Departure 1 Departure Time of Disposition: 16:13 Impression: Primary Impression: Blurry vision, left eye Additional Impressions: Weakness of left hand Left facial numbness Hyperglycemia Disposition: 09 ADMITTED INPATIENT Admit to: Tele Condition: Guarded Critical Care Note Critical Care Time?: No Stability Stability form required: No Heart Score Heart Score: Heart Score Response (Comments) Value History N/A 0 EKG N/A 0 Age N/A 0 Risk Factors N/A 0 Troponin N/A 0 Total 0 I personally scribed for SKYLER DIGGS MD ([email or web address]) on 05/09/24 at 13:15. Electronically submitted by Damien Lucio ([email or web address]). SKYLER DIGGS MD May 09, 2024 13:15
[2024-05-09] MEDS: SODIUM CHLORIDE 0.9% 1,000 ML IV ONE (13:21)
[2024-05-09 13:33] VITALS: BP 107/66; PULSE 100; RESP 17; TEMP 98.1; O2SAT 99
[2024-05-09 13:35] LABS: Base Excess -2.6 mmol/L (-2.0-3.0)
[2024-05-09 13:52] LABS: Basophils # (auto) 0 10 ^3/uL (0-0.2); Basophils % (auto) 0.3 % (0.0-2.0); Eosinophils # (auto) 0.1 10 ^3/uL (0-0.8); Eosinophils % (auto) 0.9 % (0.0-7.0); Hematocrit 44.2 % (36.0-46.0); Hemoglobin 15.2 g/dL (12.2-16.2); Lymphocytes # (auto) 2.6 10 ^3/uL (0.4-5.4); Lymphocytes % (auto) 29.3 % (10.0-50.0); Mean Corpuscular Hemoglobin 30.6 pg (28.0-32.0); Mean Corpuscular Hgb Conc. 34.4 g/dL (32.0-36.0); Monocytes # (auto) 0.5 10 ^3/uL (0-1.3); Monocytes % (auto) 5.9 % (0.0-12.0); Neutrophils # (auto) 5.7 10 ^3/uL (1.6-8.6); Neutrophils % (auto) 63.6 % (37.0-80.0); Nucleated Red Blood Cells % 0.2 %; Platelet Count (auto) 296 10^3/uL (140-450); Red Blood Cells 4.97 10^6/uL (4.0-5.20); Red Cell Distribution Width 13.9 % (11.8-14.3); White Blood Cell 8.9 10^3/uL (4.4-10.8)
[2024-05-09 13:54] LABS: Anion Gap 11 (5-15); Calcium 10.3 mg/dL (8.7-10.4); Carbon Dioxide 26 mmol/L (20-31); Potassium 4.3 mmol/L (3.5-5.1)
[2024-05-09 13:56] LABS: Chloride 97 mmol/L (98-107); Sodium 134 mmol/L (136-145)
[2024-05-09 13:59] LABS: INR 0.94 (0.9-1.15); Partial Thromboplastin Time 25.1 SEC (24.5-34.5)
[2024-05-09 14:00] LABS: BUN/Creatinine Ratio 17.5 (10.0-20.0); Blood Urea Nitrogen 17 mg/dL (9-23)
[2024-05-09 14:05] LABS: Glucose 495 mg/dL (74-106)
--- NOTE | 2024-05-09 14:47 | DVH ---
EXAM: XR Chest, 1 View CLINICAL INDICATION: weakness TECHNIQUE: Frontal view of the chest. COMPARISON: None FINDINGS: LUNGS AND PLEURAL SPACES: Unremarkable. No consolidation. No pneumothorax. HEART: Unremarkable. No cardiomegaly. MEDIASTINUM: Unremarkable. Normal mediastinal contour. BONES/JOINTS: Unremarkable. No acute fracture. OTHER FINDINGS: . . . IMPRESSION: No acute cardiopulmonary process.
--- NOTE | 2024-05-09 14:51 | DVH ---
CLINICAL INFORMATION: 44 years old, Female; blurred vision, facial weakness. TECHNIQUE: Axial imaging was obtained through the brain without contrast. Coronal and sagittal refor matted images were obtained, reviewed, and stored. Images were reviewed in brain and bone windows. A ll CT scans at this medical facility are performed using dose modulation techniques as appropriate to a performed exam including the following: Automated exposure control was utilized; adjustment of the MA and/or KV according to patient size; and use of iterative reconstruction technique. CTDIvol = 53.46 mGy DLP = 855.88 mGy-cm COMPARISON: None. FINDINGS: There is no acute intracranial hemorrhage or extraaxial fluid collection. No mass effect o r midline shift. The ventricles and sulci are within normal limits in size for age. Basal cisterns a re patent. The calvarium is unremarkable. Paranasal sinuses and mastoid air cells are clear. IMPRESSION: No CT evidence of acute intracranial abnormality.
[2024-05-09] MEDS: ASPirin 325 MG TAB PO ONE (16:47)
[2024-05-09] MEDS: InsuLIN REG 1unit/0.01ml Soln (100units/ml) IV ONE ×2 (16:57→17:15)
[2024-05-09] MEDS ORDERED: LORazepam 0.5 MG TAB PO PRN (17:15)
[2024-05-09] MEDS ORDERED: MAALOX PLUS or MAALOX 30 ML PO PRN (17:15)
[2024-05-09] MEDS ORDERED: SODIUM CHLORIDE 0.9% 1,000 ML IV SCH (17:15)
[2024-05-09] MEDS ORDERED: MORPHINE SULFATE INJ 2 MG/ml SYRG IV PRN (17:15)
[2024-05-09] MEDS ORDERED: ACETAMINOPHEN 325 MG TAB PO PRN (17:15)
[2024-05-09] MEDS ORDERED: HYDROcodone-ACET 5/325MG TAB PO PRN (17:15)
[2024-05-09] MEDS ORDERED: ONDANSETRON HCL 4 MG/2 ML VIAL IV PRN (17:15)
[2024-05-09] MEDS ORDERED: DEXTROSE (50%) 50ML SYRG IV PRN (17:15)
[2024-05-09] MEDS ORDERED: DOCUSATE SOD 100 MG CAP PO PRN (17:15)
--- NOTE | 2024-05-09 17:26 | DVHHP2 ---
History of Present Illness Reason for Visit: Blurry vision History of Present Illness 44-year-old with a history of diabetes also with a history of recurrent pancreatitis comes to the ED with complaints of blurry vision patient denies any cough cold fevers chills nausea vomiting diarrhea but stated he has had multiple symptoms which all seem to be in line with hyperglycemia patient will be ED was found to have blood sugar of about 500 with elevated levels of glucose severely unknown time patient was recommended for admission and further evaluation and acute management of severely uncontrolled diabetes. Endocrine: Diabetes Review of Systems Constitutional: Yes: Weakness; No: Fever, Chills, Sweats, Malaise, Other Eyes: Vision change; No: Pain, Conjunctivae inflammation, Eyelid inflammation, Other, Redness ENT: No: Ear pain, Ear discharge, Nose pain, Nose discharge, Nose congestion, Mouth pain, Mouth swelling, Throat pain, Throat swelling, Other Respiratory: No: Cough, Dry, Shortness of breath, SOB with excertion, Wheezing, Hemoptysis, Pleuritic Pain, Sputum, Wheezing, Other Cardiovascular: No: Chest Pain, Palpitations, Orthopnea, Paroxysmal Noc. Dyspnea, Edema, Lt Headedness, Other Gastrointestinal: No: Nausea, Vomiting, Abdominal Pain, Diarrhea, Constipation, Melena, Hematochezia, Other Genitourinary: No Dysuria; Frequency, Incontinence; No Hematuria, No Retention, No Other Musculoskeletal: No: other, neck pain, shoulder pain, arm pain, back pain, hand pain, leg pain, foot pain Skin: No: Rash, Lesions, Jaundice, Bruising, Other Neurological: No: Weakness, Numbness, Incoordination, Change in speech, Confusion, Seizures, Other Allergies: Coded Allergies: NO KNOWN ALLERGIES (Unverified , 12/02/11) Exam Vital Signs Vital Signs Date Time Temp Pulse Resp B/P (MAP) Pulse Ox O2 Delivery O2 Flow Rate FiO2 05/09/24 13:33 98.1 100 17 107/66 (80) 99 98.1 05/09/24 13:33 Room Air 05/09/24 13:13 0 21 General Appearance: Alert, Oriented X3, Cooperative, mild distress HEENT: Atraumatic, PERRLA, EOMI Respiratory: Clear to auscultation, Normal air movement Cardiovascular: Regular rate, Normal S1, Normal S2 Abdominal: Normal bowel sounds, Soft Extremities: No clubbing, No cyanosis Skin: No rashes, No breakdown Neuro: Normal gait, Normal speech Psych/Mental Status: Mood NL Labs/Xrays Labs Test 05/09/24 16:52 05/09/24 14:30 05/09/24 13:21 05/09/24 13:20 Range/Units POC Glucose 488 *H 70-106 mg/dl Troponin I High Sensitivity < 3 L </=34 ng/L Blood Gas Specimen Type Arterial Blood Gas Sample Site Left brachial Blood Gas Patient Temperature 37.0 Arterial Blood Date Drawn [id number] Arterial Blood pH 7.408 7.350-7.450 Arterial Blood Partial Pressure CO2 34.5 32.0-45.0 mmHg Arterial Blood Partial Pressure O2 76.8 L 83.0-108.0 mmHg Arterial Blood HCO3 21.3 21.0-28.0 mmol/L Arterial Blood Oxygen Saturation 95.3 94.0-98.0 % Arterial Blood Base Excess -2.6 L -2.0-3.0 mmol/L Arterial Blood Oxyhemoglobin 88.8 L 94.0-98.0 % Arterial Blood Carboxyhemoglobin 6.5 H 0.5-1.5 % Arterial Blood Methemoglobin 0.3 0.0-1.5 % Rory Test Yes Blood Gas Total Hemoglobin 15.00 12.0-16.0 g/dL Blood Gas Modality Room air FiO2 % 21.0 White Blood Count 8.9 4.4-10.8 10^3/uL Red Blood Count 4.97 4.0-5.20 10^6/uL Hemoglobin 15.2 12.2-16.2 g/dL Hematocrit 44.2 36.0-46.0 % Mean Corpuscular Volume 89.0 80.0-100.0 fL Mean Corpuscular Hemoglobin 30.6 28.0-32.0 pg Mean Corpuscular Hemoglobin Concent 34.4 32.0-36.0 g/dL Red Cell Distribution Width 13.9 11.8-14.3 % Platelet Count 296 140-450 10^3/uL Mean Platelet Volume 7.9 6.9-10.8 fL Neutrophils (%) (Auto) 63.6 37.0-80.0 % Lymphocytes (%) (Auto) 29.3 10.0-50.0 % Monocytes (%) (Auto) 5.9 0.0-12.0 % Eosinophils (%) (Auto) 0.9 0.0-7.0 % Basophils (%) (Auto) 0.3 0.0-2.0 % Neutrophils # (Auto) 5.7 1.6-8.6 10 ^3/uL Lymphocytes # (Auto) 2.6 0.4-5.4 10 ^3/uL Monocytes # (Auto) 0.5 0-1.3 10 ^3/uL Eosinophils # (Auto) 0.1 0-0.8 10 ^3/uL Basophils # (Auto) 0 0-0.2 10 ^3/uL Nucleated Red Blood Cells 0.2 % Prothrombin Time 10.0 9.3-11.8 sec Prothrombin Time INR 0.94 0.9-1.15 Activated Partial Thromboplast Time 25.1 24.5-34.5 SEC Sodium Level 134 L 136-145 mmol/L Potassium Level 4.3 3.5-5.1 mmol/L Chloride Level 97 L 98-107 mmol/L Carbon Dioxide Level 26 20-31 mmol/L Anion Gap 11 5-15 Blood Urea Nitrogen 17 9-23 mg/dL Creatinine 0.97 0.550-1.02 mg/dL Glomerular Filtration Rate Calc 74 >90 mL/min BUN/Creatinine Ratio 17.5 10.0-20.0 Serum Glucose 495 *H 74-106 mg/dL Calcium Level 10.3 8.7-10.4 mg/dL B-Type Natriuretic Peptide 3.20 0-100 pg/mL Beta-Hydroxybutyric Acid 1.104 H < 0.4 mmol/L Beta HCG, Quantitative 1.6 1.5-4.2 mIU/mL Assessment/Plan Assessment/Plan Admit to telemetry Uncontrolled diabetes with HHS No acute signs of DKA no anion gap however glucose greater than 500 insulin sliding scale aggressive aggressive IV hydration B.i.d. long-acting insulin to be started 20 units just as required Regular insulin to be given 10 units now Repeat a.m. labs Carb controlled diet Downgrade from tele once glucose below 250 Plan discussed with: Patient My Orders Orders - BRENT GONZALES MD Procedure Category Date Status Time Glucose Blood PHA 05/09/24 In Process (Accu-Chek Comfort 20:00 Insulin R (Human) PHA 05/09/24 In Process (Insulin R) 20:00 Dextrose 50% Syringe PHA 05/09/24 In Process 17:15 Insulin Lantus PHA 05/09/24 In Process (Glargine) (Lantus) 22:00 Admit ADMIT 05/09/24 Transmitted 17:01 Code Status CODE 05/09/24 Transmitted 17:01 Vital Signs RODERICK 05/09/24 In Process 17:01 Review Orders With [facility] 05/09/24 In Process Adm. 17:01 Consistent DIET 05/09/24 Transmitted Carb(Ccho)Diabetes Dinner Sodium Chloride 0.9% PHA 05/09/24 In Process 17:15 Lorazepam Tablet PHA 05/09/24 In Process (Ativan Tablet) 17:15 Alum & Mag PHA 05/09/24 In Process Hydrox-Simethicone 17:15 Docusate Sodium PHA 05/09/24 In Process Capsule (Colace 17:15 Acetaminophen Tablet PHA 05/09/24 In Process (Tylenol Tablet) 17:15 Notify Of Changes [facility] 05/09/24 In Process From Base 17:01 Advance Directive [facility] 05/09/24 In Process 17:01 Basic Metabolic Panel LAB 05/10/24 Verified 04:00 Urinalysis LAB 05/09/24 Logged 17:01 Complete Blood Count LAB 05/10/24 Verified 04:00 Patient Condition ORDERS 05/09/24 Transmitted 17:01 Allergies RODERICK 05/09/24 In Process 17:01 Hydrocodone-Acet PHA 05/09/24 In Process 5/325mg Tab ([place] 17:15 Ondansetron Hcl PHA 05/09/24 In Process (Zofran) 17:15 Morphine Sulfate PHA 05/09/24 In Process Injection 17:15 Oxygen By Nasal RT 05/09/24 Transmitted Cannula 17:01 Tool Drawing Checker For [facility] 05/09/24 In Process 24 Hours 17:01 Notify Of Changes [facility] 05/09/24 In Process From Base 17:01 Problem List: (1) Blurry vision, left eye (2) Hyperglycemia (3) Acute abdominal pain Date of Service: May 09, 2024 Billing Provider: BRENT GONZALES MD Common Visit Codes: [id number] INP/OBS CARE (HIGH) BRENT GONZALES MD May 09, 2024 17:25
[2024-05-09] MEDS: ACCU-CHEK COMFORT CURVE STRIP VI SCH (19:21)
[2024-05-09] MEDS: InsuLIN REG 1unit/0.01ml Soln (100units/ml) SC SCH (19:34)
[2024-05-09] MEDS ORDERED: INSULIN LANTUS (GLARGINE) 1 /0.01ml (100units/ml) SC SCH (22:00)
--- NOTE | 2024-05-10 07:04 | ECG ---
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
== END 2024-05-09 19:42 | disposition left against medical advice (07) | DRG 420 ==
LOC: ER 11:30 → TELE 17:01
PROVIDERS: ADMIT Hospitalist; ATTEND Hospitalist
DX: E11.00 Type 2 diabetes mellitus with hyperosmolarity without nonketotic hyperglycemic-hyperosmolar coma (NKHHC) (principal); K86.1 Other chronic pancreatitis; Z79.82 Long term (current) use of aspirin; Z79.84 Long term (current) use of oral hypoglycemic drugs; Z79.4 Long term (current) use of insulin; Z79.899 Other long term (current) drug therapy; Z98.891 History of uterine scar from previous surgery
CPT/HCPCS: 36415; 36600; 70450; 71045; 80048; 82010; 82805; 82962; 83880; 84484; 84702; 85025; 85610; 85730; 93005; G0378; J1815